=== PATIENT | female | born 1930 | race Caucasian/White ===

== ENCOUNTER → 2016-08-31 | Day surgery (SDC) | payer MEDICARE ==
[2016-08-31] VITALS (7 sets, daily range): BP systolic 120–161; BP diastolic 49–84
[~2016-08-31] MED LIST: ATENOLOL; ATENOLOL50 MG PO; GLIMEPIRIDE; GLIMEPIRIDE4 MG PO; HCTZ PO; HYDROCODONE BIT1 T11 PO; JANUVIA100 MG PO; LEVOTHYROXINE0.2 MG PO; NORCO 10-325 T1 EACH PO; NOVOLIN 70/30 701 EA; NOVOLIN 70100 UNIT/1 SQ; QUINAPRIL; QUINAPRIL PO; SIMVASTATIN; SYNTHROID,LEV150 MCG PO; THYROXINE; ZOCOR20 MG PO
== END | disposition home or self-care (01) ==
LOC: SDC 08-28 11:00
DX: D04.71 Carcinoma in situ of skin of right lower limb, including hip (principal); I25.10 Atherosclerotic heart disease of native coronary artery without angina pectoris; I10 Essential (primary) hypertension; E11.9 Type 2 diabetes mellitus without complications; F41.9 Anxiety disorder, unspecified; E03.9 Hypothyroidism, unspecified; M19.90 Unspecified osteoarthritis, unspecified site; Z98.890 Other specified postprocedural states; Z79.4 Long term (current) use of insulin; Z88.0 Allergy status to penicillin; Z79.899 Other long term (current) drug therapy

== ENCOUNTER → 2016-10-27 | Outpatient (CLI) | payer MEDICARE ==
[2016-10-27 08:49] LABS: BASO # 0.1 10*3/uL (0.0-0.1); BASO % 0.7 % (0.0-1.0); EOS # 0.5 10*3/uL (0.0-0.4); EOS % 6.2 % (1.0-4.0); HEMATOCRIT 42.1 % (37.0-47.0); HEMOGLOBIN 13.7 g/dl (12.0-16.0); LYMPH # 2.9 10*3/uL (1.3-4.4); MEAN CELL VOLUME 92.5 fl (81.0-99.0); MEAN CORPUSCULAR HGB 30.1 pg (27.0-31.0); MEAN CORPUSCULAR HGB CONC 32.5 g/dl (33.0-37.0); MEAN PLATELET VOLUME 11.3 fl (9.6-12.3); MONO # 0.6 10*3/uL (0.1-1.0); MONO % 7.5 % (3.0-9.0); NEUT # 4.2 10*3/uL (2.3-7.9); PLATELET COUNT AUTOMATED 179 10*3/uL (130-400); RED BLOOD COUNT 4.55 10*6/uL (4.10-5.10); RED CELL DISTRI WIDTH 12.7 % (0-14.5); WHITE BLOOD COUNT 8.4 10*3/uL (4.8-10.8)
[2016-10-27 09:18] LABS: ALBUMIN 3.3 gm/dl (3.1-4.5); CREATININE 1.26 mg/dL (0.55-1.02); THYROXINE (T4) TOTAL 12.5 ug/dl (4.8-13.9); TOTAL PROTEIN 7.3 gm/dL (6.4-8.2)
[2016-10-27 09:26] LABS: THYROID STIM HORMONE (HS) 0.009 uIU/ml (0.358-4.75)
[2016-10-27 10:06] LABS: VITAMIN D, 25-HYDROXY 16.6 ng/mL (30-100)
== END | disposition home or self-care (01) ==
LOC: LAB 08:17
PROVIDERS: Internal Medicine
DX: E78.2 Mixed hyperlipidemia (principal); I10 Essential (primary) hypertension; D51.0 Vitamin B12 deficiency anemia due to intrinsic factor deficiency; E03.9 Hypothyroidism, unspecified; E55.9 Vitamin D deficiency, unspecified

== ENCOUNTER 2017-08-19 17:51 | Inpatient (IN) | payer MEDICARE ==
[~2017-08-19] VITALS: Ht 154.9 cm; Wt 62.3 kg
[2017-08-19 17:51] VITALS: BP 160/78
[~2017-08-19 17:51] MED LIST changes: +ATENOLOL25 MG PO; -ATENOLOL50 MG PO
[2017-08-19 18:02] LABS: BILIRUBIN NEGATIVE (NEGATIVE); BLOOD NEGATIVE (NEGATIVE); CLARITY CLEAR (CLEAR); COLOR YELLOW (YELLOW); GLUCOSE NEGATIVE (NEGATIVE); KETONE NEGATIVE (NEGATIVE); LEUKO ESTERASE NEGATIVE (NEGATIVE); NITRITE NEGATIVE (NEGATIVE); SPECIFIC GRAVITY 1.015 (1.005-1.030); UROBILINOGEN 0.2 E.U./dl (0.2-1.0)
[2017-08-19 18:08] LABS: EPITHELIAL CELLS 0-2; WBC 0-2 wbc/hpf (0-5)
[2017-08-19 18:32] LABS: BASO % 0.3 % (0.0-1.0); EOS # 0.2 10*3/uL (0.0-0.4); EOS % 1.6 % (1.0-4.0); HEMATOCRIT 42.6 % (37.0-47.0); HEMOGLOBIN 13.6 g/dl (12.0-16.0); LYMPH # 2.5 10*3/uL (1.3-4.4); LYMPH % 26.3 % (27.0-41.0); MEAN CELL VOLUME 93.4 fl (81.0-99.0); MEAN CORPUSCULAR HGB 29.8 pg (27.0-31.0); MEAN CORPUSCULAR HGB CONC 31.9 g/dl (33.0-37.0); MEAN PLATELET VOLUME 11.7 fl (9.6-12.3); MONO # 0.6 10*3/uL (0.1-1.0); NEUT # 6.3 10*3/uL (2.3-7.9); NEUT % 65.4 % (47.0-73.0); PLATELET COUNT AUTOMATED 169 10*3/uL (130-400); RED BLOOD COUNT 4.56 10*6/uL (4.10-5.10); RED CELL DISTRI WIDTH 12.2 % (0-14.5); WHITE BLOOD COUNT 9.7 10*3/uL (4.8-10.8)
[2017-08-19 18:42] LABS: ACT PARTIAL THROMBO TIME 21.9 SECONDS (20.8-31.5); INTERNATIONAL NORM RATIO 0.9 (2.0-3.5)
[2017-08-19 18:48] LABS: ALBUMIN 3.5 gm/dl (3.1-4.5); ALKALINE PHOSPHATASE 79 U/L (45-117); BUN 31 mg/dl (7-24); CHLORIDE 107 mmol/L (98-107); CREATININE 1.07 mg/dL (0.55-1.02); LIPASE 86 U/L (73-393); POTASSIUM 4.3 mmol/L (3.5-5.1); SGOT/AST 18 IU/L (3-35); SGPT/ALT 36 U/L (12-78); SODIUM 147 mmol/L (136-145); TOTAL PROTEIN 7.4 gm/dL (6.4-8.2)
[2017-08-19 18:49] LABS: TROPONIN I < 0.015 ng/ml (<0.045)
[2017-08-19 20:00] VITALS: BP 156/58
[2017-08-19 21:15] VITALS: BP 156/58
[2017-08-19] MEDS ORDERED: HUMALOG 751 UNIT/0.0 SQ ×3 (22:13→22:15)
[2017-08-19] MEDS ORDERED: SIMVASTATIN20 MG PO (22:18)
[2017-08-19] MEDS ORDERED: NOVOLOG100 UNIT/1 SQ (22:45)
[2017-08-20] VITALS: BP 152/60
[2017-08-20 04:29] LABS: BASO % 0.4 % (0.0-1.0); EOS # 0.2 10*3/uL (0.0-0.4); EOS % 2.9 % (1.0-4.0); HEMATOCRIT 36.5 % (37.0-47.0); HEMOGLOBIN 11.9 g/dl (12.0-16.0); LYMPH # 2.6 10*3/uL (1.3-4.4); LYMPH % 34.3 % (27.0-41.0); MEAN CELL VOLUME 92.4 fl (81.0-99.0); MEAN CORPUSCULAR HGB 30.1 pg (27.0-31.0); MEAN CORPUSCULAR HGB CONC 32.6 g/dl (33.0-37.0); MEAN PLATELET VOLUME 10.5 fl (9.6-12.3); MONO # 0.6 10*3/uL (0.1-1.0); MONO % 7.8 % (3.0-9.0); NEUT # 4.1 10*3/uL (2.3-7.9); NEUT % 54.3 % (47.0-73.0); PLATELET COUNT AUTOMATED 143 10*3/uL (130-400); RED BLOOD COUNT 3.95 10*6/uL (4.10-5.10); WHITE BLOOD COUNT 7.5 10*3/uL (4.8-10.8)
[2017-08-20 04:59] LABS: BUN 29 mg/dl (7-24); CHLORIDE 107 mmol/L (98-107); FREE T4 1.98 ng/dl (0.76-1.46); POTASSIUM 4.2 mmol/L (3.5-5.1); SODIUM 143 mmol/L (136-145)
[2017-08-20 05:06] LABS: THYROID STIM HORMONE (HS) < 0.005 uIU/ml (0.358-4.75)
[2017-08-20 07:30] LABS: VITAMIN D, 25-HYDROXY 16.9 ng/mL (30-100)
[2017-08-20 08:00] VITALS: BP 122/34
[2017-08-20 12:00] VITALS: BP 149/98
[2017-08-20] MEDS ORDERED: SYNTHROID,LEV175 MCG PO (13:28)
== END 2017-08-20 14:50 | disposition home or self-care (01) | DRG 637 ==
LOC: ED 17:51 → 5E 20:39 → EDHOLD 20:39 → 5E 22:21
PROVIDERS: Emergency Medicine; Internal Medicine
DX: E11.649 Type 2 diabetes mellitus with hypoglycemia without coma (principal); G93.41 Metabolic encephalopathy; E87.2 Acidosis; E86.0 Dehydration; I10 Essential (primary) hypertension; E03.9 Hypothyroidism, unspecified; M10.9 Gout, unspecified; E78.5 Hyperlipidemia, unspecified; E11.36 Type 2 diabetes mellitus with diabetic cataract; Z88.0 Allergy status to penicillin; Z79.4 Long term (current) use of insulin; Z79.899 Other long term (current) drug therapy; Z90.710 Acquired absence of both cervix and uterus; Z82.49 Family history of ischemic heart disease and other diseases of the circulatory system; Z80.8 Family history of malignant neoplasm of other organs or systems